=== PATIENT | male | born 1990 | race Caucasian/White ===

== ENCOUNTER 2016-12-26 17:45 | Inpatient (IN) ==
[2016-12-26] MEDS ORDERED: SODIUM CHLORIDE 0.9% 1,000 ML IV STA (21:05)
[2016-12-26] MEDS ORDERED: ACETAMINOPHEN 500 MG TABLET PO STA (21:05)
--- NOTE | 2016-12-26 21:10 | Emergency Department Note ---
Jani Sims Emily, am scribing for, and in the presence of, Que Lal MD 21: 09. Lukasz Sims Charles R, MD, personally performed the services described in this documentation, ascribed by Rivka Gunter in my presence, and it is both accurate and complete . Arrival - Arrival Chief Complaint: Fever Stated Complaint: high fever,weak,vomiting ED Nursing Triage Note: Pt c/o fever, BARTH, body aches, cough, N/V/D, and weakness. Mode of Arrival: Ambulatory Limitations: No Limitations Source: Patient, Significant other Time Seen by Provider: 12/26/16 20:59 - History of Present Illness HPI Narrative: Pt is a 26 y/o female who came to ED with c/o fever, cough, BARTH, and N/V/D that has been ongoing for 2 days now. Pt notes his fever has been up & down, ranging from 102-105.2. He states not able to take OTC medication for fever due to emesis. Pt states his "bones are aching," mild neck pain, and usually has cough in the mornings, but denies smoking. Pt also denies taking daily medication, dysuria or urinary sxs. He reports not being around anyone sick recently. Onset (ago): day(s) Consistency: constant Severity: mild, moderate Severity scale (1-10): 4 Quality: aching Allergies/Adverse Reactions: Allergies Allergy/AdvReac Type Severity Reaction Status Date / Time No Known Allergies Allergy Verified 12/26/16 17:53 Home Medications: Home Medications Medication Instructions Recorded Confirmed Type No Known Home Medications [No 12/26/16 12/26/16 History Known Home Medications] Review of System - Review of System 12 point system: reviewed and no additional remarkable complaints except as stated - Review of System Constitutional: Present: chills ("bones ache"), fever Head/Ears/Nose/Throat: Present: nasal drainage. Absent: sore throat Respiratory: Present: cough. Absent: respiratory distress Cardiovascular: Absent: chest pain, syncope Gastrointestinal: Present: nausea, vomiting, diarrhea. Absent: abdominal pain Genitourinary male: Absent: urgency, dysuria, frequency, hematuria Musculoskeletal: Present: neck pain (mild). Absent: arm pain, leg pain Skin: Absent: rash Neurological: Present: headache. Absent: numbness, paresthesias, confusion Psychiatric: Absent: anxiety Medical,Surgical,& Family Hx - Surgical History Surgical History: noncontributory - Family History Family History: noncontributory - Social History Smoking Status: Never smoker Marital Status: Single Lives With:: Significant Other Functional capacity: independent ambulation Exam Vital Signs: Vital Signs Temperature 99.0 F 12/26/16 20:20 Pulse Rate 115 H 12/26/16 20:20 Respiratory Rate 20 12/26/16 20:20 Blood Pressure 135/93 12/26/16 20:20 O2 Sat by Pulse Oximetry 99 12/26/16 20:20 - General General appearance: alert, in no apparent distress - Head Head exam: Present: atraumatic, normocephalic - Eye Eye exam: Present: PERRL, EOMI - ENT ENT exam: Present: mucous membranes moist. Absent: mucous membranes dry - Neck Neck exam: Present: full ROM, trachea midline. Absent: meningismus - Chest Chest inspection: Present: symmetric chest wall rise - Respiratory Respiratory exam: Present: normal lung sounds bilaterally. Absent: respiratory distress - Cardiovascular Cardiovascular exam: Present: tachycardia, normal heart sounds - Extremities Exam Extremities exam: Present: full ROM. Absent: pedal edema - Neurological Exam Neurological exam: Present: alert, oriented X3, CN II-XII intact. Absent: motor sensory deficit - Psychiatric Psychiatric exam: Present: normal affect, normal mood - Skin Skin exam: Present: warm, dry Course - Consultations Consultation #1: Hospitalist will admit patient Time: 00:00 Results - Labs CBC & BMP: 12/26/16 21:14 12/26/16 21:14 Lab Results: I have reviewed the patients labs Labs: Microbiology 12/26/16 22:00 Throat Group A Streptococcus Rapid Screen - Final Negative for Grp A Strep Ag 12/26/16 22:00 Nasal Aspirate Influenza Types A,B Antigen (CHARLES) - Final Negative for Influenza A Ag Negative for Influenza B Ag Laboratory Tests 12/26/16 12/26/16 21:14 21:14 WBC 14.0 H RBC 5.31 Hgb 17.4 Hct 47.3 MCHC 36.8 H Plt Count 185 Neut % (Auto) 84.7 H Lymph % (Auto) 7.2 L Neut # (Auto) 11.8 H Lymph # (Auto) 1.0 L Stan[place] # (Auto) 1.1 H Sodium 134 L Potassium 3.2 L Chloride 101 Carbon Dioxide 22 BUN 5 L Creatinine 1.00 BUN/Creatinine Ratio 5.00 L Glucose 134 H Calculated Osmolality 266.2 L Lactic Acid 2.8 H Total Bilirubin 1.40 H Lactate Dehydrogenase 269 H C-Reactive Protein 14.70 H Globulin 3.6 H Amylase 51 Lipase 154.0 Laboratory Tests 12/26/16 21:14 ESR Westergren 7 Critical Care Time Critical Care Time: Yes Total Critical Care Time: 30 Disposition Clinical Impression: Sepsis, Leukocytosis, unspecified, Possible pneumonia, Community acquired pneumonia, Hypokalemia Case discussed with: patient, patient's family Disposition: Still a Patient Condition: Stable Time of Disposition: 23:57 Sepsis - Sepsis Classification of Sepsis: Sepsis - Physical Exam Respiratory exam: clear to auscultation bilaterally Capillary Refill: Less Than 3 Seconds Cardiovascular exam: tachycardia Skin exam: normal color
[2016-12-26 21:43] LABS: Basophils % 0.2 % (0.0-0.8); Hematocrit 47.3 VOL% (42.0-52.0); Immature Granulocytes % 0.3 %; Immature Granulocytes Absolute 0.04 #; Lymphocytes % 7.2 % (21.2-54.2); Mean Corpuscular HGB Conc 36.8 GM/DL (32-36); Mean Corpuscular Hemoglobin 33 PG (27-34); Mean Corpuscular Volume 89.1 FL (87-102); Monocytes # 1.1 10*3/uL (0.11-0.8); Monocytes % 7.6 % (1.7-12.7); Neutrophils # 11.8 10*3/uL (1.4-7.4); Neutrophils % 84.7 % (38.7-73.9); Platelet Count 185 T/CUMM (130-400); Red Blood Count 5.31 MC/CUMM (3.8-5.5); Red Cell Distribution Width 12.3 % (9.3-17.3)
[2016-12-26 21:44] LABS: Hemoglobin 17.4 GM/DL (14.0-18.0)
[2016-12-26] MEDS ORDERED: ACETAMINOPHEN 500 MG TABLET ONE (21:52)
[2016-12-26 21:58] LABS: Albumin 4.3 G/DL (3.4-5.0); Bilirubin,Total 1.4 MG/DL (0.2-1.0); Calcium 9.2 MG/DL (8.5-10.1); Total Protein 7.9 G/DL (6.4-8.3)
[2016-12-26 21:59] LABS: Osmolality,Calculated 266.2 MOS/KG (273-304); Potassium 3.2 MMOL/L (3.5-5.1)
[2016-12-26 22:14] LABS: Lactic Acid 2.8 MMOL/L (0.4-2.0)
[2016-12-26 22:53] LABS: Sedimentation Rate-Westergren 7 MM/HR (0-15)
[2016-12-26] MEDS ORDERED: SODIUM CHLORIDE 0.9% 3,900 ML IV ONE (23:00)
[2016-12-26 23:15] LABS: INR 1.3; PT Patient Result 14.3 SECS; Partial Thromboplastin Time 27.3 SECS (0-40)
[2016-12-26] MEDS ORDERED: SODIUM CHLORIDE 0.9% 100 ML IV ONE (23:43)
[2016-12-26] MEDS ORDERED: PIPERACILLIN/TAZOBACTAM 3,375 MG VIAL IV ONE (23:43)
[2016-12-26 23:47] LABS: Apearance,Urine Slightly Hazy (Clear); Bacteria,Urine Occasional /HPF (Few); Bilirubin,Urine Negative (Negative); Blood, Urine Small mg/dL (Negative); Glucose,Urine (UA) Negative (Negative); Ketones,Urine 5 mg/dL (Negative); Mucus,Urine Occasional /LPF (Occasional); Nitrite,Urine Negative (Negative); Protein,Urine 100 MG/DL; RBC,Urine 4 /HPF (0-4); Urine Color Amber (Yellow); Urine Specific Gravity 1.026 (1.001-1.035); Urine Urobilinogen < 2.0 EU/DL (0.2-1.0); WBC,Urine 4 /HPF (0-6)
[2016-12-26] MEDS: PIPERACILLIN/TAZOBACTAM 3,375 MG in SODIUM CHLORIDE 0.9% 100 ML IV SCH (23:51)
[2016-12-26] MEDS ORDERED: POTASSIUM CHLORIDE 20 MEQ TABLET PO STA (23:55)
[2016-12-27] MEDS ORDERED: ACETAMINOPHEN 325 MG TABLET PO PRN (00:42)
[2016-12-27] MEDS ORDERED: ZALEPLON 5 MG CAPSULE PO PRN (00:42)
[2016-12-27] MEDS ORDERED: ONDANSETRON 4 MG/2 ML VIAL IV PRN (00:42)
--- NOTE | 2016-12-27 00:56 | Hospitalist History & Physical ---
Assessment and Plan (1) Severe sepsis Status: Acute Current Visit: Yes (2) Gastroenteritis Status: Acute Current Visit: Yes (3) Leukocytosis, unspecified Status: Acute Current Visit: Yes (4) Community acquired pneumonia Status: Acute Assessment and plan: Patient will be admitted to our service we will put him on broad coverage antibiotics. He received a bolus in the emergency room will continue with IV fluids. Blood cultures have been drawn. Also will order stool cultures. He does work around chickens and there is possibility he received some kind of infection from them. Also after the IV fluids and a repeat a chest x-ray in the morning in case there is a hidden pneumonia that will reveal itself after the IV fluids. Patient is on no home medications. We will treat his fever with Tylenol as needed. Reevaluate patient in the morning and adjust plans appropriate. Current Visit: Yes History of Present Illness Chief complaint: Fever nausea vomiting diarrhea History of present illness: Mr. Curran is a 26 year old male with no past medical history presents with approximately 36 hours of fever. Patient reports his fevers been up to 105 is been ranging from 102-105 over the past 36 hours. 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 He reports that he has had a lot of diarrhea. He says every time he eats it goes right through him. He came to our hospital for further evaluation. I was consulted for admission based on his symptoms and labs. Patient is with a severe sepsis. Home Medications Medication Instructions Recorded Confirmed Type No Known Home Medications [No 12/26/16 12/26/16 History Known Home Medications] Allergies Allergy/AdvReac Type Severity Reaction Status Date / Time No Known Allergies Allergy Verified 12/26/16 17:53 Medical,Surgical,& Family Hx - Medical History Medical History: noncontributory (Patient has no past medical problems) - Surgical History Surgical History: noncontributory (Patient has had no surgeries) - Family History Family History: Reports;: Family Cancer, Family Heart Disease Additional Family History: End-stage renal disease - Social History Smoking Status: Never smoker Frequency of Alcohol Use: None Type of Drug Use: None 12 point system: reviewed and no additional remarkable complaints except as stated Exam - Constitutional Vitals: Period Temp Pulse Resp BP Sys/Falcon Pulse Ox Last 24 Hr 97.5 F-99.0 F 115-165 20-20 135-146/89-93 96-100 General appearance: normal weight - Head Head exam: Present: normal inspection - Eye Eye exam: Present: EOMI Pupils: Present: AMARI - ENT ENT exam: Present: normal exam - Neck Neck exam: Present: normal inspection - Respiratory Respiratory exam: Present: clear to auscultation bilaterally - Cardiovascular Cardiovascular exam: Present: regular rate and rhythm - GI/Abdominal GI/Abdominal exam: Present: normal bowel sounds - Extremities Exam Extremities exam: Present: normal inspection - Back Exam Back exam: Present: normal inspection - Neurological Exam Neurological exam: Present: alert - Psychiatric Psychiatric exam: Present: normal affect - Skin Skin exam: Present: normal color Results - Labs CBC & BMP: 12/26/16 21:14 12/26/16 21:14
[2016-12-27] MEDS ORDERED: POTASSIUM CHLORIDE 20 MEQ TABLET PO ONE (01:57)
[2016-12-27] MEDS ORDERED: VANCOMYCIN INJ 2,000 MG in SODIUM CHLORIDE 0.9% 250 ML IV SCH (04:00)
[2016-12-27] MEDS ORDERED: VANCOMYCIN INJ 2,000 MG in SODIUM CHLORIDE 0.9% 500 ML IV SCH (04:00)
--- NOTE | 2016-12-27 06:39 | XRay Report ---
XR chest 2V Indication: Shortness of breath, fever Comparison: None available Findings: The heart and mediastinum are normal in size and configuration. The pulmonary vascularity is normal in caliber. No lung infiltrates, effusions, pneumothorax or other abnormality is demonstrated. Impression: Normal chest x-ray PROCEDURE INTERPRETED AT [facility] DEPARTMENT OF RADIOLOGY Final Report Signed by: Dr. Jose Srinivasan
[2016-12-27] MEDS: SODIUM CHLORIDE 0.9% 1,000 ML IV SCH ×3 (07:23→15:53)
[2016-12-27 08:16] LABS: Albumin 3.5 G/DL (3.4-5.0); Bilirubin,Total 1.2 MG/DL (0.2-1.0); Calcium 8.6 MG/DL (8.5-10.1); Osmolality,Calculated 277.3 MOS/KG (273-304); Potassium 3.4 MMOL/L (3.5-5.1); Total Protein 6.5 G/DL (6.4-8.3)
[2016-12-27 08:22] LABS: Basophils % 0.3 % (0.0-0.8); Eosinophils % 0.2 % (0.00-10.9); Hematocrit 43.8 VOL% (42.0-52.0); Hemoglobin 15.9 GM/DL (14.0-18.0); Immature Granulocytes % 0.2 %; Immature Granulocytes Absolute 0.03 #; Lymphocytes # 2.2 10*3/uL (1.4-4.0); Lymphocytes % 17.5 % (21.2-54.2); Mean Corpuscular HGB Conc 36.3 GM/DL (32-36); Mean Corpuscular Hemoglobin 33 PG (27-34); Mean Corpuscular Volume 90.1 FL (87-102); Mean Platelet Volume 11.4 FL (9.6-12.0); Monocytes # 1.5 10*3/uL (0.11-0.8); Monocytes % 12.3 % (1.7-12.7); Neutrophils # 8.6 10*3/uL (1.4-7.4); Neutrophils % 69.5 % (38.7-73.9); Platelet Count 172 T/CUMM (130-400); Red Blood Count 4.86 MC/CUMM (3.8-5.5); Red Cell Distribution Width 12.6 % (9.3-17.3); White Blood Count 12.4 T/CUMM (4-12)
--- NOTE | 2016-12-27 08:33 | XRay Report ---
XR chest 1V portable Indication: SOB Comparison: Chest x-ray dated December 26, 2016 Technique: Single frontal view of the chest. Findings: The cardiomediastinal silhouette is stable in configuration. Low lung volumes with bronchovascular crowding. No focal consolidation, pleural effusion, or pneumothorax. Visualized osseous and surrounding soft tissue structures appear grossly unchanged. IMPRESSION: No adverse interval change. PROCEDURE INTERPRETED AT [facility] DEPARTMENT OF RADIOLOGY Final Report Signed by: Dr Bishnu Guo
[2016-12-27] MEDS: methylPREDNISolone SOD SUC 40 MG/1 ML VIAL IV SCH ×3 (08:34→23:38)
[2016-12-27] MEDS ORDERED: diphenhydrAMINE 50 MG/1 ML VIAL IV ONE (08:39)
[2016-12-27] MEDS: PIPERACILLIN/TAZOBACTAM 3,375 MG in SODIUM CHLORIDE 0.9% 100 ML IV SCH ×3 (09:53→18:46)
[2016-12-27] MEDS: FAMOTIDINE INJ 40 MG in SODIUM CHLORIDE 0.9% 100 ML IV SCH ×2 (10:01→23:39)
[2016-12-27] MEDS: PANTOPRAZOLE 40 MG TABLET PO SCH (10:02)
[2016-12-27] MEDS: ENOXAPARIN 40 MG/0.4 ML SYRINGE SUBCUT SCH (10:02)
--- NOTE | 2016-12-27 11:22 | Hospitalist Progress Note ---
Addendum entered and electronically signed by Cong Vazquez CNP 12/27/16 13 :08: In addition, we will obtain CT chest and echocardiogram to rule out infective endocarditis. Original Note: <Cong Vazquez - Last Filed: 12/27/16 11:20> Assessment and Plan (1) Leukocytosis, unspecified Status: Acute Assessment and plan: Noted decrease in white blood cell count; white blood cell count noted at 12.4 down from 14.0 at the time of admission. Patient is currently afebrile. Enrique cultures were obtained. Empiric antibiotic coverage has been initiated. No apparent source of infection has been identified. This is concerning simply because of the patient's age and absence of multiple comorbidities. We will conduct a full fever workup. We will obtain STANLEY, rheumatoid factor, serum protein electrophoresis, Robert-Wren virus IgG, HIV panel, and hepatitis panel. In addition, we will order stat CT abdomen and pelvis with contrast for further evaluation. Current Visit: Yes (2) Hypokalemia Status: Acute Assessment and plan: Potassium noted at 3.4; electrolyte protocol in place. We will correct the deficit and recheck in a.m. Current Visit: Yes Hospitalist: Subjective Interval history: Patient seen and examined; chart reviewed. No significant overnight events reported per staff. Patient complaining of sudden onset of erythema affecting his neck face and hands. Upon further assessment, the patient was receiving his scheduled dose of vancomycin. Vancomycin stopped due to possible reaction. Exam - Constitutional Vitals: Period Temp Pulse Resp BP Sys/Falcon Pulse Ox Last 24 Hr 97.5 F-101.2 F 79-165 18-23 110-147/66-93 95-100 General appearance: over weight - Head Head exam: Present: normal inspection, normocephalic, atraumatic - Eye Eye exam: Present: EOMI. Absent: conjunctival injection Pupils: Present: AMARI, normal accommodation - ENT ENT exam: Present: normal exam, normal external ear exam, normal oropharynx - Neck Neck exam: Present: normal inspection. Absent: lymphadenopathy, meningismus, thyromegaly - Respiratory Respiratory exam: Present: clear to auscultation bilaterally. Absent: rales, rhonchi, stridor, wheezes - Cardiovascular Cardiovascular exam: Present: regular rate and rhythm. Absent: carotid bruit, diastolic murmur, gallop, JVD, rubs, systolic murmur - GI/Abdominal GI/Abdominal exam: Present: normal bowel sounds, soft - Extremities Exam Extremities exam: Present: normal inspection, normal capillary refill, full ROM. Absent: edema - Back Exam Back exam: Present: normal inspection - Neurological Exam Neurological exam: Present: alert, oriented X3, CN II-XII intact - Psychiatric Psychiatric exam: Present: normal affect, normal mood - Skin Skin exam: Present: normal color, warm, dry Results - Labs CBC & BMP: 12/27/16 06:56 12/27/16 06:56 Lab Results: I have reviewed the past 24 hour labs <Catina Ashley - Last Filed: 12/27/16 13:32> Hospitalist: Subjective Interval history: Patient seen and examined independently of DIRECTOR OF OPERATIONS [facility] HE[employer] George, agree with history, assessment and plan as documented. Patient feeling better, asking about going outside to "dip." Last fever at 4am. No clear source of infection identified yet. He does report cough and congestion, with yellow sputum production. He also does have diarrhea, with many wbcs seen on smear. Exam - Constitutional Vitals: Period Temp Pulse Resp BP Sys/Falcon Pulse Ox Last 24 Hr 97.5 F-101.2 F 79-165 18-23 108-147/64-93 95-100 Results - Labs CBC & BMP: 12/27/16 06:56 12/27/16 06:56
[2016-12-27] MEDS ORDERED: diphenhydrAMINE CAP 50 MG CAPSULE PO PRN (11:31)
[2016-12-27] MEDS ORDERED: MAGNESIUM SULF RIDER 4 GM in PREMIX 1 EACH IV PRN (11:32)
[2016-12-27] MEDS ORDERED: POTASSIUM CHLORIDE RIDER 10 MEQ in PREMIX 1 EACH IV PRN (11:32)
[2016-12-27] MEDS ORDERED: MAGNESIUM SULF RIDER 2 GM in PREMIX 1 EACH IV PRN (11:32)
[2016-12-27 12:27] LABS: Rheumatoid Factor < 15 IU/ML (<15)
[2016-12-27 13:25] LABS: Hepatitis A Ab IgM Quant 0.13 Index; Hepatitis A Ab IgM Result Negative (Negative); Hepatitis B Core IgM Quant 0.22 Index; Hepatitis B Core IgM Result Negative (Negative); Hepatitis C Virus Ab Quant 0.04 Index; Hepatitis C Virus Ab Result Negative (Negative)
[2016-12-27 13:26] LABS: HIV Antigen/Antibody Result Nonreactive (Nonreactive)
[2016-12-27 14:20] LABS: Hepatitis B Surface Ag Quant 0.13 Index; Hepatitis B Surface Ag Result Negative (Negative)
--- NOTE | 2016-12-27 15:07 | CT Report ---
Exam: CT chest with intravenous contrast Exam date: 12/27/2016 2:17 PM Clinical History: 26 years,Male,fever of unknown origin, diffuse body pain Technique: Axial computed tomography images of the chest with intravenous contrast. The CT exam was performed using one or more of the following dose reduction techniques: Automated exposure control, adjustment of the mA and/or kV according to patient size, or use of iterative reconstruction technique. Contrast: 100 mL of Omnipaque 350 administered intravenously. Comparison: No relevant comparisons Findings: Lungs: No mass. No consolidation. Pleural spaces: No pneumothorax. No significant effusion Heart: No cardiomegaly. No pericardial effusion Mediastinum: Intact. Normal trachea Bones/joints: Intact. No acute fracture. No dislocation. Soft tissues: Unremarkable Vasculature: Intact Lymph nodes: No pathologic adenopathy Impression: 1. No acute intrathoracic abnormality. Exam: CT abdomen and pelvis with and without intravenous contrast Exam date: 12/27/2016 2:17 PM Clinical History: 26 years,Male, Technique: Axial computed tomography images of the abdomen and pelvis with intravenous contrast. All CT scans at this facility use one or more dose reduction techniques. Automated exposure control, MA/KV adjustment per patient size (including targeted exam Square dose is matched to indication) or iterative reconstruction technique Comparison: No relevant comparisons Findings: Lower thorax: See dedicated chest report. Abdomen: Liver: Unremarkable Gallbladder and bile ducts: Unremarkable. No calcified stones. No ductal dilatation. Pancreas: Pancreas is normal. Spleen: Spleen is normal. Adrenals: No adrenal mass. Kidneys and ureters: Normal in size, echotexture and morphology. No hydronephrosis. No ureteral calculus. Stomach and bowel: No evidence of acute gastritis, colitis or enteritis. No bowel obstruction. Appendix: No primary or secondary signs to suggest appendicitis. Pelvis: Bladder: Unremarkable Reproductive: Unremarkable as visualized. Abdomen and pelvis: Intraperitoneal space: No pneumoperitoneum. No free intraperitoneal fluid Bones/joints: No acute osseous abnormality. Soft tissues: No mass Vasculature: No aortic aneurysm. . Lymph nodes: No adenopathy Impression: 1. No acute findings to explain patient's symptoms. PROCEDURE INTERPRETED AT [facility] DEPARTMENT OF RADIOLOGY Final Report Signed by: Camron Oconnor MD
[2016-12-27] MEDS: NICOTINE 7 MG/24 HR PATCH TRANSDERM SCH (15:48)
--- NOTE | 2016-12-27 19:57 | Order Completion Report ---
See report scanned to EMR
[2016-12-28] MEDS: PIPERACILLIN/TAZOBACTAM 3,375 MG in SODIUM CHLORIDE 0.9% 100 ML IV SCH ×2 (00:28→10:01)
[2016-12-28 00:57] LABS: Barbiturates Screen,Urine Negative (Negative); Benzodiazepines Screen,Urine Negative (Negative); Cannabinoid Screen,Urine Negative (Negative); Opiate Screen,Urine Negative (Negative); Phencyclidine Screen,Urine Negative (Negative)
[2016-12-28] MEDS: methylPREDNISolone SOD SUC 40 MG/1 ML VIAL IV SCH ×3 (05:23→14:30)
[2016-12-28 08:17] LABS: Basophils % 0.1 % (0.0-0.8); Hematocrit 44.9 VOL% (42.0-52.0); Immature Granulocytes % 0.6 %; Immature Granulocytes Absolute 0.06 #; Lymphocytes % 9.9 % (21.2-54.2); Mean Corpuscular HGB Conc 35.6 GM/DL (32-36); Mean Corpuscular Hemoglobin 32 PG (27-34); Mean Corpuscular Volume 90.5 FL (87-102); Monocytes # 0.5 10*3/uL (0.11-0.8); Monocytes % 4.6 % (1.7-12.7); Neutrophils # 8.9 10*3/uL (1.4-7.4); Neutrophils % 84.8 % (38.7-73.9); Platelet Count 217 T/CUMM (130-400); Red Blood Count 4.96 MC/CUMM (3.8-5.5); Red Cell Distribution Width 12.7 % (9.3-17.3); White Blood Count 10.5 T/CUMM (4-12)
[2016-12-28 08:49] LABS: Calcium 9.3 MG/DL (8.5-10.1); Magnesium 2.1 MG/DL (1.8-2.4); Osmolality,Calculated 282.1 MOS/KG (273-304); Potassium 4.2 MMOL/L (3.5-5.1)
[2016-12-28 09:17] LABS: Albumin (SPE) 4.5 G/DL (3.2-5.3); Albumin (SPE) Rel % 63.5 %; Alpha 1 (SPE) 0.2 G/DL (0.1-0.4); Alpha 1 (SPE) Rel % 2.3 %; Alpha 2 (SPE) 0.7 G/DL (0.4-1.0); Alpha 2 (SPE) Rel % 10.5 %; Beta (SPE) 0.8 G/DL (0.5-1.1); Gamma (SPE) 0.8 G/DL (0.7-1.7); Gamma (SPE) Rel % 11.7 %
[2016-12-28] MEDS: PANTOPRAZOLE 40 MG TABLET PO SCH (09:22)
[2016-12-28] MEDS: FAMOTIDINE INJ 40 MG in SODIUM CHLORIDE 0.9% 100 ML IV SCH (09:22)
[2016-12-28] MEDS: ENOXAPARIN 40 MG/0.4 ML SYRINGE SUBCUT SCH (09:22)
[2016-12-28] MEDS: SODIUM CHLORIDE 0.9% 1,000 ML IV SCH (09:23)
[2016-12-28] MEDS: NICOTINE 7 MG/24 HR PATCH TRANSDERM SCH (10:03)
[2016-12-28 11:21] VITALS: BP 158/85
--- NOTE | 2016-12-28 15:19 | Discharge Summary ---
Hospital Course - Hospital Course Hospital Course: Mr Curran presented with several days of diarrhea. He had fever and elevated WBC. He was treated with IVF and antibiotics. His diarrhea has stopped and he is feeling back to normal. He is eating a regular diet. His echo showed EF at 65 % and normal diastolic dysfunction. He has been afebrile for [address] chest abdomen and pelvis is negative. 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 He will follow up with his PCP in a week. - Time spent with patient Time with patient DS: Greater than 30 minutes (35 minutes were spent in discharge planning medicine reconciliation and documentation.) Diagnosis - Discharge Diagnosis (1) Hypokalemia Status: Resolved (2) Severe sepsis Status: Resolved (3) Gastroenteritis Status: Resolved (4) UTI (urinary tract infection) Status: Acute Specialty Discharge - Follow Up or Referrals Follow up with: Your, PCP [Other] (1 week) Discharge Plan - Discharge Data Disposition: Disch To Home/Self Care Condition at Discharge: Stable Discharge Diet: advance to your usual diet Activity: resume usual activities as tolerated - Discharge Medications New Levofloxacin Tab [Levaquin Tab] 750 mg PO DAILY #7 tablet predniSONE [Prednisone] 10 mg PO DAILY #10 tablet - Follow Up or Referral Follow Up: Your, PCP [Other] (1 week) - Forms/Instructions Instructions: Sepsis (DC) Exam - Constitutional Vitals: Period Temp Pulse Resp BP Sys/Falcon Pulse Ox Last 24 Hr 97.1 F-98.4 F 64-112 18-20 112-158/61-88 97-100 General appearance: no acute distress, morbidly obese - Head Head exam: Present: normocephalic, atraumatic - Eye Eye exam: Present: EOMI. Absent: scleral icterus - Respiratory Respiratory exam: Present: clear to auscultation bilaterally - Cardiovascular Cardiovascular exam: Present: regular rate and rhythm - GI/Abdominal GI/Abdominal exam: Present: normal bowel sounds, soft. Absent: tenderness - Extremities Exam Extremities exam: Absent: edema - Neurological Exam Neurological exam: Present: alert, oriented X3, CN II-XII intact. Absent: motor sensory deficit - Psychiatric Psychiatric exam: Present: normal affect, normal mood - Skin Skin exam: Present: warm, dry. Absent: rash Discharge Results Procedures and tests throughout hospitalization: Pending Orders 12/26/16 21:14 Meningitis Ags w/Urine Culture Stat 12/26/16 21:30 Blood Culture Stat 12/27/16 Urine Culture Stat 12/27/16 03:28 Stool Culture Routine 12/27/16 11:55 Drug Screen Prescrip/OTC Urine Stat Robert-Wren Virus (EBV), IgG Stat 12/29/16 04:00 XR chest 1V portable IN AM Labs on day of discharge: Labs from last 24 hours 12/28/16 12/28/16 12/27/16 07:54 07:54 21:14 WBC 10.5 RBC 4.96 Hgb 16.0 Hct 44.9 MCV 90.5 MCH 32 MCHC 35.6 RDW 12.7 Plt Count 217 D MPV 11.0 Neut % (Auto) 84.8 H Lymph % (Auto) 9.9 L [place] % (Auto) 4.6 Eos % (Auto) 0.0 Baso % (Auto) 0.1 Neut # (Auto) 8.9 H Lymph # (Auto) 1.0 L [place] # (Auto) 0.5 Eos # (Auto) 0.0 Baso # (Auto) 0.0 Immature Gran % 0.6 Nucleated RBC % 0.0 Immature Gran # 0.06 Nucleated RBCs # 0.00 Immature Plt Fraction 0.0 Sodium 142 Potassium 4.2 Chloride 108 H Carbon Dioxide 29 Anion Gap 9.2 BUN 7 Creatinine 0.80 GFR Calculation 182 BUN/Creatinine Ratio 8.00 Glucose 130 H Calculated Osmolality 282.1 Calcium 9.3 Magnesium 2.1 Lactate Dehydrogenase 217 Urine Opiates Screen Negative Ur Barbiturates Screen Negative Ur Phencyclidine Scrn Negative U Amphetamine/Methamph Negative U Benzodiazepines Scrn Negative U Cocaine Metab Screen Negative U Cannabinoids Screen Negative Pro Electrophoresis Int Serum Total Protein PEP Albumin (PEP) Albumin (relative) Xqkqm-9-Bcxaelmy Khifl-0-Pbuppeou rel Lcrye-4-Zhmmpadz Lazug-1-Ejxvfxap rel Qnbf-5-Xmsvraqk Dpor-6-Ivrcixmu rel Gamma Globulins Gamma Globulins rel STANLEY Screen 12/27/16 12/27/16 11:55 11:55 WBC RBC Hgb Hct MCV MCH MCHC RDW Plt Count MPV Neut % (Auto) Lymph % (Auto) [place] % (Auto) Eos % (Auto) Baso % (Auto) Neut # (Auto) Lymph # (Auto) [place] # (Auto) Eos # (Auto) Baso # (Auto) Immature Gran % Nucleated RBC % Immature Gran # Nucleated RBCs # Immature Plt Fraction Sodium Potassium Chloride Carbon Dioxide Anion Gap BUN Creatinine GFR Calculation BUN/Creatinine Ratio Glucose Calculated Osmolality Calcium Magnesium Lactate Dehydrogenase Urine Opiates Screen Ur Barbiturates Screen Ur Phencyclidine Scrn U Amphetamine/Methamph U Benzodiazepines Scrn U Cocaine Metab Screen U Cannabinoids Screen Pro Electrophoresis Int See comment Serum Total Protein PEP 7.0 Albumin (PEP) 4.5 Albumin (relative) 63.5 Khyin-3-Zwxluqvu 0.2 Ksosk-1-Fndiyacw rel 2.3 Zpsjz-3-Pppemfvr 0.7 Olbwt-8-Aybfgrqv rel 10.5 Dxeq-8-Sxnxogsm 0.8 Clwe-6-Qhzpuwfc rel 12.0 Gamma Globulins 0.8 Gamma Globulins rel 11.7 STANLEY Screen Negative (<1:160) Preliminary micro results at discharge 12/26/16 21:14 Urine Culture - Preliminary Urine,Clean Catch Gram Positive Cocci 12/27/16 Unknown Urine Culture - Preliminary Urine,Voided Gram Positive Cocci 12/27/16 03:28 Stool Culture - Preliminary Stool No enteric pathogens at 24 hrs 12/26/16 21:30 Blood Culture - Preliminary Blood No growth at 1 day 12/26/16 21:14 Blood Culture - Preliminary Blood No growth at 1 day DS: Provider Date of admission: 12/27/16 00:43 Primary care physician: . No PCP Attending physician on admission: Jose Mackenzie MD Consults: 12/27/16 02:15 Consult to Pharmacy [CONS] Routine Reason for Pharmacy Consult: Dose/Manage Vancomycin 12/27/16 03:20 Consult to Dietitian [CONS] Routine Reason for Dietitian: Dietary Consult Consult Comment: N/V/D and fever Discharging clinician: Shy Oreilly MD
== END 2016-12-28 16:10 | disposition home or self-care (01) | DRG 871 ==
LOC: N.ED 17:45 → SUATTDRO 12-27 00:43 → N.EDINP 12-27 00:43 → N.3E 12-27 01:27
PROVIDERS: ADMIT Internal Medicine; ATTEND Internal Medicine